=== PATIENT | male | born 1970 | race Caucasian/White ===

== ENCOUNTER 2016-06-18 14:23 | Emergency (ER) | payer OTHER ==
[2016-06-18 14:23] VITALS: BMI 39.6
[2016-06-18] MEDS ORDERED: SODIUM CHLORIDE 0.9% 3 ML FLUSH FLUSH PRN (15:11)
[2016-06-18] MEDS ORDERED: ASPIRIN 325 MG TAB PO ONE (15:11)
--- NOTE | 2016-06-18 15:15 | EDPRACDOC ---
- General Information Information Source: Patient Mode of Arrival: Car - History of Present Illness Onset: 1 DAY HPI: PT PRESENTS TO ED WITH DELUSIONAL THOUGHTS RAMBLING CONVERSATION CHEST PRESSURE TACHYPNEA RAPID HEART RATE. 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 PT ALSO STATES HE HAS BEEN SEEING PEOPLE TODAY. HE ALSO STATES THAT HE WANTS TO GET THIS OUT OF THE WAY BUT "MY IS NOT WORTH A DAMN SHE DOESNT CLEAN THE HOUSE OR DO THE LAUNDRY WHILE IM AT WORK AND SHE JUST SITS AT HOME ALL DAY LONG AND DOES NOTHING". Chest Pain Location: Reports: Substernal Pain Radiation: Reports: None Symptoms Occur: Reports: Suddenly Cardiac Risk Factors: Reports: Hyperlipidemia, Hypertension, Diabetes Cardiac History of: Reports: None PE Risk Factors: Reports: None Medications within 24 Hours: Reports: Aspirin Prehospital Care: Reports: ASA (REGULAR MEDS TODAY) Pain Came On: Reports: Gradually (THROUGHTOUT THE DAY) Pain Status: Present Now Pain Description: Reports: Pressure, Aching, Tightness Pain Severity: Moderate Pain Worsens With: Reports: Nothing Pain Improves With: Reports: Nothing Associated Signs and Symptoms: Reports: SOB, Palpitations, Nausea, Other ( HEADACHE) <Aubrey Rene - Last Filed: 06/18/16 15:50> <Pedro Torres - Last Filed: 06/18/16 19:35> - General Information Chief Complaint: Chest Pain Stated Complaint: CHEST PAIN; SHOB Time Seen by Provider: 06/18/16 15:10 Home Medications: Home Medications Hydrochlorothiazide [Hydrodiuril] 12.5 mg PO HS 02/29/16 Lisinopril [Prinivil] 20 mg PO HS 02/29/16 Omeprazole [Prilosec] 20 mg PO HS 02/29/16 Testosterone Cypionate [Depo-Testosterone] 1 ml IM .[id number] 02/29/16 Insulin Regular, Human [Humulin R U-500 Kwikpen] 65 unit SQ BID 11/19/16 Aspirin (Enteric Coated) [Ecotrin] 162 mg PO .ONCE 06/18/16 Cholecalciferol (Vitamin D3) [Vitamin D3] 2,000 unit PO QHS 06/18/16 [place]-3 Fatty Acids/Fish Oil [Fish Oil 1,000 mg Softgel] 1 cap PO QHS 06/18/16 Ondansetron HCl [Zofran] 4 mg PO Q6H PRN #15 tab 06/18/16 Oseltamivir Phosphate [Tamiflu] 75 mg PO BID #10 cap 06/18/16 [place] 160 mg PO QHS 06/18/16 Allergies/Adverse Reactions: Allergies Allergy/AdvReac Type Severity Reaction Status Date / Time Fibrate Anti-Lipidemics Allergy Unknown Verified 06/18/16 15:27 Rqovioc-Wcy-Lyc Reductase Allergy See Verified 06/18/16 14:29 Inhibitor Comments ED Past Medical History - History Reviewed Yes Nurses notes reviewed and agree except as marked Travel Outside of [place] in the Last 3 Months?: No - Patient Medical History Cardiac History: Reports: Hypertension, Heart Attack, Hypercholesterolemia GI/ History: Reports: Pancreatitis Psychological History: Reports: Depression, Anxiety Systemic History: Reports: Cancer (MELANOMA), Diabetes Surgical History: Reports: Tonsillectomy/Adnoidectomy, Other (MELANOMA REMOVAL) - Family Medical History Reports: Diabetes (grandfather), Cancer (grandmother), Cardiac Disorders (father ). Denies: Hypertension, Stroke - Social Medical History Smoking Status: Never smoker Social History: Reports: Marijuana Use ETOH: None Substance Abuse: None Lives With: Spouse Lives In: Home <Aubrey Rene - Last Filed: 06/18/16 15:50> EDM Review of Systems - Review of Systems ROS Negative Except as Marked: Yes All systems reviewed and were negative except as marked Constitutional: Chills (AND SHAKES), Fatigue. negative: Fever, Loss of Appetite , Weakness Eyes: No Symptoms Reported. negative: Redness, Blurred Vision, Double Vision, Discharge, Pain, Light Sensitive, Photophobia Ears: No Symptoms Reported. negative: Pain, Hearing Loss, Drainage, Ear Pulling Throat: No Symptoms Reported. negative: Pain, Swelling Nose: No Symptoms Reported. negative: Congestion, Bleeding, Discharge, Injection, Swelling, Deformity, Ecchymosis, Tender, Abrasion, Laceration Mouth: No Symptoms Reported. negative: Pain, Drooling Respiratory: Shortness of Breath, Other (TACHYPNEA). negative: Barky Cough, Brassy Cough, Cough, Hemoptysis, Wheezing Cardiovascular: Palpitations. negative: Chest Pain, Cyanosis, Edema, Orthopnea , PND, Syncope, Skin Mottling Gastrointestinal: No Symptoms Reported. negative: Pain, Constipation, Nausea, Vomiting, Diarrhea, Melena, Formula Intolerance Genitourinary: No Symptoms Reported. negative: Dysuria, Hematuria, Frequency, Discharge, Bleeding, Testicular Pain, Neurological: Headache, Mood Changes, Changes in Orientation, Other (DELUSIONS RAMBLING CONVERSATION). negative: Dizziness, Gait Difficulty, Numbness, Seizure , Speech Difficulty, Weakness Musculoskeletal: No Symptoms Reported. negative: Neck, Chestwall, Ribs, Back, Shoulder, Arm, Elbow, Forearm, Wrist, Hand, Pelvis, Hip, Femur, Knee, Leg, Ankle , Foot Integumentary: No Symptoms Reported. negative: Itching, Rash, Bruising, Wound Allergic/Immunologic: No Symptoms Reported. negative: Hives, Itching Hematologic: No Symptoms Reported. negative: Lymphadenopathy, Easy Bruising, Easy Bleeding Endocrine: No Symptoms Reported. negative: Weight Gain, Weight Loss Psychiatric: Anxiety (PANIC ATTACKS CURRENT), Other (DELUSIONS AND QUESTIONABLE HALLUCINATIONS). negative: Depression, Hallucinations, Insomnia, Suicidal <Aubrey Rene - Last Filed: 06/18/16 15:50> - Physical Exam Constitutional: Alert (Awake), Confused Oriented to: Time, Person, Place Last recorded Vital Signs: Last Vital Signs Temp 99.4 F 06/18/16 14:25 Pulse 127 H 06/18/16 15:05 Resp 21 06/18/16 15:05 BP 128/70 06/18/16 15:05 Pulse Ox 95 06/18/16 15:05 Oxygen Pulse Oxygen Saturation 95 O2 Device Room Air Oxygen Flow Rate Fraction of Inspired Oxygen ( FIO2) - HEENT Head: Normal ( normocephalic) Eye Exam: Normal (PERRL, EOMI, Sclera white) Oropharynx: Normal (Pharynx:Moist without exudate,Gums-no swelling) Tympanic Membrane: Normal ENT EAC: Normal TMJ: Normal Nose: No Symptoms Reported (septum midline) Neck: Normal (FROM, trachea at midline) - Respiratory/Cardiovascular Respiratory: Diminished, Tachypnea Cardiovascular: Tachycardia - GI Auscultation: Normal (NABS) Palpation: Normal (Soft,No rebound or guarding, non distended) Tenderness: Non tender Hernández's Sign: Negative - Bladder: Normal - Musculoskeletal Back: Normal (Non-Tender) Extremities: Normal (Normal tone, Pulses 2+ No cyanosis or edema, FROM) - Integumentary Skin: Normal, Warm, Dry Lymphatics: Normal (no adenopathy) - Neurologic Memory Impaired: Normal Motor Function: Normal (Normal tone, Pulses 2+ No cyanosis or edema, FROM) Cranial Nerve: Normal (CN II-X11 intact sensation, strength 5/5) Cerebellar: Normal Mood Description: Anxious Thought: Delusions, Flight of Ideas, Paranoia, Rambling Conversation <Aubrey Rene - Last Filed: 06/18/16 15:50> - Physical Exam Last recorded Vital Signs: Last Vital Signs Temp 98.5 F 06/18/16 18:39 Pulse 118 06/18/16 18:22 Resp 28 H 06/18/16 18:22 BP 118/67 06/18/16 18:22 Pulse Ox 94 06/18/16 18:22 Oxygen Pulse Oxygen Saturation 94 O2 Device Room Air Oxygen Flow Rate Fraction of Inspired Oxygen ( FIO2) <Pedro Torres - Last Filed: 06/18/16 19:35> ED Chest Pain Exam - Respiratory/Cardiovascular Respiratory: Diminished, Tachypnea Cardiovascular/Chest: Tachycardia Radial Pulse: Normal Femoral Pulse: Normal Pedal Pulse: Normal Carotid Arteries: Normal Chest Palpation: Normal <Aubrey Rene - Last Filed: 06/18/16 15:50> - Differential Diagnosis Angina, Esophageal reflux/spasm, Myocardial infarction, Pneumonia, Pulmonary embolus, Other (DRUG INDUCED, MENTAL HEALTH DISORDER, ANXIETY, MAJOR DEPRESSION WITH PSYCHOTIC FEATURES) - Action Patient received Aspirin within last 24 hours?: Yes ASA given in the ED: Yes Aspirin therapy held due to: Other-specify below* (PT HAD 162MG GAVE 325MG IN ED ) - Results 06/18/16 15:00 06/18/16 15:00 <Aubrey Rene - Last Filed: 06/18/16 15:50> - Re-evaluation Re-evaluation 1 Re-evaluation Time: 19:24 MENTATION IMPROVING. HAVE ADVISED PATIENT AND FAMILY TO RETURN IF WORSENING SYMPTOMS. WILL TREAT INFLUENZA GIVEN HIGH FALSE NEGATIVE RATE OF TESTING. - Results 06/18/16 15:00 06/18/16 15:00 WBC 9.2 xk/uL (3.8-10.8) 06/18/16 15:00 RBC 6.54 xM/uL (4.70-6.10) H 06/18/16 15:00 Hgb 17.0 g/dL (14.0-18.0) 06/18/16 15:00 Hct 50.8 % (42-52) 06/18/16 15:00 MCV 78 fL (80-94) L 06/18/16 15:00 MCH 26.1 pg (27-32) L 06/18/16 15:00 MCHC 33.5 g/dl (33-36) 06/18/16 15:00 RDW 14.8 % (11.5-14.5) H 06/18/16 15:00 Plt Count 245 xk/uL (130-400) 06/18/16 15:00 MPV 8.4 fL (7.4-10.4) 06/18/16 15:00 Neut % (Auto) 87.2 % (45-76) H 06/18/16 15:00 Lymph % (Auto) 6.3 % (17-44) L 06/18/16 15:00 [place] % (Auto) 5.1 % (3-10) 06/18/16 15:00 Eos % (Auto) 0.7 % (0-5) 06/18/16 15:00 Baso % (Auto) 0.7 % (0-2) 06/18/16 15:00 Absolute Neuts (auto) 8.00 xk/uL (1.7-8.2) 06/18/16 15:00 Absolute Lymphs (auto) 0.55 xk/uL (0.65-4.75) L 06/18/16 15:00 PT 10.7 SEC (9.2-11.2) 06/18/16 15:00 INR 1.0 06/18/16 15:00 APTT 27.4 SEC (22-35) 06/18/16 15:00 D-Dimer Quant (PE/DVT) 418 ng/mL (<500) 06/18/16 15:00 Puncture Site Right radial 01/17/17 16:34 pH 7.470 pH UNITS (7.35-7.45) H 06/18/16 16:34 pCO2 32.0 mmHg (35-45) L 06/18/16 16:34 pO2 68.0 mmHg (80-100) L 06/18/16 16:34 HCO3 23.3 MMOL/L (22-26) 06/18/16 16:34 Total CO2 24.3 MMOL/L (23-27) 06/18/16 16:34 Base Excess 0.3 (+/- 2) 06/18/16 16:34 FiO2 % 21% 06/18/16 16:34 Specimen Drawn By Kasgl 06/18/16 16:34 Sodium 138 mEq/L (137-146) 06/18/16 15:00 Potassium 4.3 mEq/L (3.5-5.1) 06/18/16 15:00 Chloride 99 mEq/L (98-107) 06/18/16 15:00 Carbon Dioxide 27 mMOL/L (22-33) 06/18/16 15:00 Anion Gap 16 mEq/L (8-16) 06/18/16 15:00 BUN 25 MG/DL (9-20) H 06/18/16 15:00 Creatinine 1.20 MG/DL (0.66-1.25) 06/18/16 15:00 Estimated GFR (MDRD) > 60 mL/min (>=60) 06/18/16 15:00 Glucose 142 MG/DL (70-99) H 06/18/16 15:00 POC Capillary Glucose 93 MG/DL (70-99) 06/18/16 18:11 Calculated Osmolality 272 MOs/Kg (270-290) 06/18/16 15:00 Lactic Acid 2.3 mEq/L (0.7-2.1) H 06/18/16 17:35 Calcium 9.2 MG/DL (8.4-10.2) 06/18/16 15:00 Total Bilirubin 1.1 MG/DL (0.2-1.3) 06/18/16 15:00 AST 39 IU/L (17-59) 06/18/16 15:00 ALT 41 IU/L (21-72) 06/18/16 15:00 Alkaline Phosphatase 85 IU/L (38-126) 06/18/16 15:00 Creatine Kinase 337 IU/L (55-170) H 06/18/16 17:35 CK-MB (CK-2) 3.4 ng/mL (0-4.5) 06/18/16 17:35 Troponin I < 0.01 ng/mL (<.04) 06/18/16 17:35 Cmc-R-Zzbmtnhaufz Pept 29 pg/mL (0-450) 06/18/16 15:00 Total Protein 7.6 G/DL (6.3-8.2) 06/18/16 15:00 Albumin 4.4 G/DL (3.5-5.0) 06/18/16 15:00 Lipase 57 U/L (23-300) 06/18/16 15:00 TSH 1.11 uIU/mL (0.5-4.67) 06/18/16 15:00 Free T4 0.91 ng/dL (0.78-2.19) 06/18/16 15:00 Free T3 4.18 pg/mL (2.77-5.27) 06/18/16 15:00 Urine Color Yellow 06/18/16 15:42 Urine Clarity Clear 06/18/16 15:42 Urine pH 5.0 (5.0-8.0) 06/18/16 15:42 Ur Specific [place] 1.020 06/18/16 15:42 Urine Protein Neg (NEG/TRACE) 06/18/16 15:42 Urine Glucose (UA) 2+ (NEGATIVE) 06/18/16 15:42 Urine Ketones Neg (NEGATIVE) 06/18/16 15:42 Urine Occult Blood Neg (NEG/TRACE) 06/18/16 15:42 Urine Nitrite Neg (NEGATIVE) 06/18/16 15:42 Urine Bilirubin Neg (NEGATIVE) 06/18/16 15:42 Urine Urobilinogen 0.2 MG/DL (0-1) 06/18/16 15:42 Ur Leukocyte Esterase Neg (NEGATIVE) 06/18/16 15:42 Urine RBC 0-2 (0-2) 06/18/16 15:42 Urine WBC 0-2 (0-2) 06/18/16 15:42 Ur Epithelial Cells Occ 06/18/16 15:42 Hyaline Casts 0-2 (0-2) 06/18/16 15:42 Urine Mucus Sm amt (NEG/OCC) 06/18/16 15:42 Urine Opiates Screen Neg (NEGATIVE) 06/18/16 15:42 Ur Oxycodone Screen Neg (NEGATIVE) 06/18/16 15:42 Urine Methadone Screen Neg (NEGATIVE) 06/18/16 15:42 Ur Barbiturates Screen Neg (NEGATIVE) 06/18/16 15:42 Ur Tricyclics Screen Neg (NEGATIVE) 06/18/16 15:42 Ur Phencyclidine Scrn Neg (NEGATIVE) 06/18/16 15:42 Ur Amphetamines Screen Neg (NEGATIVE) 06/18/16 15:42 U Methamphetamines Scrn Neg (NEGATIVE) 06/18/16 15:42 Urine MDMA Screen Neg (NEGATIVE) 06/18/16 15:42 U Benzodiazepines Scrn *positive* (NEGATIVE) H 06/18/16 15:42 Urine Cocaine Screen Neg (NEGATIVE) 06/18/16 15:42 Ur THC Screen Neg (NEGATIVE) 06/18/16 15:42 Plasma/Serum Ethyl Alc % (<0.01) 06/18/16 15:00 Microbiology 06/18/16 17:08 Influenza Type A Antigen Screen - Final Nasal Washing/Aspirate Or Swab NEGATIVE Please note: A NEGATIVE result does not exclude an influenza virus infection. It is a presumptive result and, if required, confirmation should be done using either a virus culture or an FDA-cleared influenza A&B molecular assay. ("NORMAL" value = "NEGATIVE".) Influenza Type B Antigen Screen - Final NEGATIVE Please note: A NEGATIVE result does not exclude an influenza virus infection. It is a presumptive result and, if required, confirmation should be done using either a virus culture or an FDA-cleared influenza A&B molecular assay. ("NORMAL" value = "NEGATIVE".) Lab Results 06/18/16 06/18/16 06/18/16 18:11 17:35 17:35 WBC RBC Hgb Hct MCV MCH MCHC RDW Plt Count MPV Neut % (Auto) Lymph % (Auto) [place] % (Auto) Eos % (Auto) Baso % (Auto) Absolute Neuts (auto) Absolute Lymphs (auto) PT INR APTT D-Dimer Quant (PE/DVT) Puncture Site pH pCO2 pO2 HCO3 Total CO2 Base Excess FiO2 % Specimen Drawn By Sodium Potassium Chloride Carbon Dioxide Anion Gap BUN Creatinine Estimated GFR (MDRD) Glucose POC Capillary Glucose 93 Calculated Osmolality Lactic Acid 2.3 H Calcium Total Bilirubin AST ALT Alkaline Phosphatase Creatine Kinase 337 H CK-MB (CK-2) 3.4 Troponin I < 0.01 Gsq-X-Zrnoszblxmt Pept Total Protein Albumin Lipase TSH Free T4 Free T3 Urine Color Urine Clarity Urine pH Ur Specific [place] Urine Protein Urine Glucose (UA) Urine Ketones Urine Occult Blood Urine Nitrite Urine Bilirubin Urine Urobilinogen Ur Leukocyte Esterase Urine RBC Urine WBC Ur Epithelial Cells Hyaline Casts Urine Mucus Urine Opiates Screen Ur Oxycodone Screen Urine Methadone Screen Ur Barbiturates Screen Ur Tricyclics Screen Ur Phencyclidine Scrn Ur Amphetamines Screen U Methamphetamines Scrn Urine MDMA Screen U Benzodiazepines Scrn Urine Cocaine Screen Ur THC Screen Plasma/Serum Ethyl Alc 06/18/16 06/18/16 06/18/16 16:34 15:42 15:42 WBC RBC Hgb Hct MCV MCH MCHC RDW Plt Count MPV Neut % (Auto) Lymph % (Auto) [place] % (Auto) Eos % (Auto) Baso % (Auto) Absolute Neuts (auto) Absolute Lymphs (auto) PT INR APTT D-Dimer Quant (PE/DVT) Puncture Site Right radial pH 7.470 H pCO2 32.0 L pO2 68.0 L HCO3 23.3 Total CO2 24.3 Base Excess 0.3 FiO2 % 21% Specimen Drawn By Kasgl Sodium Potassium Chloride Carbon Dioxide Anion Gap BUN Creatinine Estimated GFR (MDRD) Glucose POC Capillary Glucose Calculated Osmolality Lactic Acid Calcium Total Bilirubin AST ALT Alkaline Phosphatase Creatine Kinase CK-MB (CK-2) Troponin I Zni-S-Xejpqkrjlja Pept Total Protein Albumin Lipase TSH Free T4 Free T3 Urine Color Yellow Urine Clarity Clear Urine pH 5.0 Ur Specific [place] 1.020 Urine Protein Neg Urine Glucose (UA) 2+ Urine Ketones Neg Urine Occult Blood Neg Urine Nitrite Neg Urine Bilirubin Neg Urine Urobilinogen 0.2 Ur Leukocyte Esterase Neg Urine RBC 0-2 Urine WBC 0-2 Ur Epithelial Cells Occ Hyaline Casts 0-2 Urine Mucus Sm amt Urine Opiates Screen Neg Ur Oxycodone Screen Neg Urine Methadone Screen Neg Ur Barbiturates Screen Neg Ur Tricyclics Screen Neg Ur Phencyclidine Scrn Neg Ur Amphetamines Screen Neg U Methamphetamines Scrn Neg Urine MDMA Screen Neg U Benzodiazepines Scrn *positive* H Urine Cocaine Screen Neg Ur THC Screen Neg Plasma/Serum Ethyl Alc 06/18/16 06/18/16 06/18/16 15:00 15:00 15:00 WBC RBC Hgb Hct MCV MCH MCHC RDW Plt Count MPV Neut % (Auto) Lymph % (Auto) [place] % (Auto) Eos % (Auto) Baso % (Auto) Absolute Neuts (auto) Absolute Lymphs (auto) PT INR APTT D-Dimer Quant (PE/DVT) Puncture Site pH pCO2 pO2 HCO3 Total CO2 Base Excess FiO2 % Specimen Drawn By Sodium Potassium Chloride Carbon Dioxide Anion Gap BUN Creatinine Estimated GFR (MDRD) Glucose POC Capillary Glucose Calculated Osmolality Lactic Acid Calcium Total Bilirubin AST ALT Alkaline Phosphatase Creatine Kinase CK-MB (CK-2) Troponin I Ggd-A-Uapyiecjnho Pept Total Protein Albumin Lipase 57 TSH 1.11 Free T4 0.91 Free T3 4.18 Urine Color Urine Clarity Urine pH Ur Specific [place] Urine Protein Urine Glucose (UA) Urine Ketones Urine Occult Blood Urine Nitrite Urine Bilirubin Urine Urobilinogen Ur Leukocyte Esterase Urine RBC Urine WBC Ur Epithelial Cells Hyaline Casts Urine Mucus Urine Opiates Screen Ur Oxycodone Screen Urine Methadone Screen Ur Barbiturates Screen Ur Tricyclics Screen Ur Phencyclidine Scrn Ur Amphetamines Screen U Methamphetamines Scrn Urine MDMA Screen U Benzodiazepines Scrn Urine Cocaine Screen Ur THC Screen Plasma/Serum Ethyl Alc 06/18/16 06/18/16 06/18/16 15:00 15:00 15:00 WBC 9.2 RBC 6.54 H Hgb 17.0 Hct 50.8 MCV 78 L MCH 26.1 L MCHC 33.5 RDW 14.8 H Plt Count 245 MPV 8.4 Neut % (Auto) 87.2 H Lymph % (Auto) 6.3 L [place] % (Auto) 5.1 Eos % (Auto) 0.7 Baso % (Auto) 0.7 Absolute Neuts (auto) 8.00 Absolute Lymphs (auto) 0.55 L PT 10.7 INR 1.0 APTT 27.4 D-Dimer Quant (PE/DVT) 418 Puncture Site pH pCO2 pO2 HCO3 Total CO2 Base Excess FiO2 % Specimen Drawn By Sodium Potassium Chloride Carbon Dioxide Anion Gap BUN Creatinine Estimated GFR (MDRD) Glucose POC Capillary Glucose Calculated Osmolality Lactic Acid Calcium Total Bilirubin AST ALT Alkaline Phosphatase Creatine Kinase CK-MB (CK-2) Troponin I Emf-[id number]-Aqjjcnyiuei Pept Total Protein Albumin Lipase TSH Free T4 Free T3 Urine Color Urine Clarity Urine pH Ur Specific [place] Urine Protein Urine Glucose (UA) Urine Ketones Urine Occult Blood Urine Nitrite Urine Bilirubin Urine Urobilinogen Ur Leukocyte Esterase Urine RBC Urine WBC Ur Epithelial Cells Hyaline Casts Urine Mucus Urine Opiates Screen Ur Oxycodone Screen Urine Methadone Screen Ur Barbiturates Screen Ur Tricyclics Screen Ur Phencyclidine Scrn Ur Amphetamines Screen U Methamphetamines Scrn Urine MDMA Screen U Benzodiazepines Scrn Urine Cocaine Screen Ur THC Screen Plasma/Serum Ethyl Alc 06/18/16 15:00 WBC RBC Hgb Hct MCV MCH MCHC RDW Plt Count MPV Neut % (Auto) Lymph % (Auto) [place] % (Auto) Eos % (Auto) Baso % (Auto) Absolute Neuts (auto) Absolute Lymphs (auto) PT INR APTT D-Dimer Quant (PE/DVT) Puncture Site pH pCO2 pO2 HCO3 Total CO2 Base Excess FiO2 % Specimen Drawn By Sodium 138 Potassium 4.3 Chloride 99 Carbon Dioxide 27 Anion Gap 16 BUN 25 H Creatinine 1.20 Estimated GFR (MDRD) > 60 Glucose 142 H POC Capillary Glucose Calculated Osmolality 272 Lactic Acid Calcium 9.2 Total Bilirubin 1.1 AST 39 ALT 41 Alkaline Phosphatase 85 Creatine Kinase 407 H CK-MB (CK-2) 5.7 H Troponin I < 0.01 Nqp-N-Kzkhkppctsp Pept 29 Total Protein 7.6 Albumin 4.4 Lipase TSH Free T4 Free T3 Urine Color Urine Clarity Urine pH Ur Specific [place] Urine Protein Urine Glucose (UA) Urine Ketones Urine Occult Blood Urine Nitrite Urine Bilirubin Urine Urobilinogen Ur Leukocyte Esterase Urine RBC Urine WBC Ur Epithelial Cells Hyaline Casts Urine Mucus Urine Opiates Screen Ur Oxycodone Screen Urine Methadone Screen Ur Barbiturates Screen Ur Tricyclics Screen Ur Phencyclidine Scrn Ur Amphetamines Screen U Methamphetamines Scrn Urine MDMA Screen U Benzodiazepines Scrn Urine Cocaine Screen Ur THC Screen Plasma/Serum Ethyl Alc Laboratory Results - last 24 hr 06/18/16 06/18/16 06/18/16 15:00 15:00 15:00 WBC 9.2 RBC 6.54 H Hgb 17.0 Hct 50.8 MCV 78 L MCH 26.1 L MCHC 33.5 RDW 14.8 H Plt Count 245 MPV 8.4 Neut % (Auto) 87.2 H Lymph % (Auto) 6.3 L [place] % (Auto) 5.1 Eos % (Auto) 0.7 Baso % (Auto) 0.7 Absolute Neuts (auto) 8.00 Absolute Lymphs (auto) 0.55 L PT 10.7 INR 1.0 APTT 27.4 D-Dimer Quant (PE/DVT) Puncture Site pH pCO2 pO2 HCO3 Total CO2 Base Excess FiO2 % Specimen Drawn By Sodium 138 Potassium 4.3 Chloride 99 Carbon Dioxide 27 Anion Gap 16 BUN 25 H Creatinine 1.20 Estimated GFR (MDRD) > 60 Glucose 142 H POC Capillary Glucose Calculated Osmolality 272 Lactic Acid Calcium 9.2 Total Bilirubin 1.1 AST 39 ALT 41 Alkaline Phosphatase 85 Creatine Kinase 407 H CK-MB (CK-2) 5.7 H Troponin I < 0.01 Rni-T-Ckqaztixhax Pept 29 Total Protein 7.6 Albumin 4.4 Lipase TSH Free T4 Free T3 Urine Color Urine Clarity Urine pH Ur Specific [place] Urine Protein Urine Glucose (UA) Urine Ketones Urine Occult Blood Urine Nitrite Urine Bilirubin Urine Urobilinogen Ur Leukocyte Esterase Urine RBC Urine WBC Ur Epithelial Cells Hyaline Casts Urine Mucus Urine Opiates Screen Ur Oxycodone Screen Urine Methadone Screen Ur Barbiturates Screen Ur Tricyclics Screen Ur Phencyclidine Scrn Ur Amphetamines Screen U Methamphetamines Scrn Urine MDMA Screen U Benzodiazepines Scrn Urine Cocaine Screen Ur THC Screen Plasma/Serum Ethyl Alc 06/18/16 06/18/16 06/18/16 15:00 15:00 15:00 WBC RBC Hgb Hct MCV MCH MCHC RDW Plt Count MPV Neut % (Auto) Lymph % (Auto) [place] % (Auto) Eos % (Auto) Baso % (Auto) Absolute Neuts (auto) Absolute Lymphs (auto) PT INR APTT D-Dimer Quant (PE/DVT) 418 Puncture Site pH pCO2 pO2 HCO3 Total CO2 Base Excess FiO2 % Specimen Drawn By Sodium Potassium Chloride Carbon Dioxide Anion Gap BUN Creatinine Estimated GFR (MDRD) Glucose POC Capillary Glucose Calculated Osmolality Lactic Acid Calcium Total Bilirubin AST ALT Alkaline Phosphatase Creatine Kinase CK-MB (CK-2) Troponin I Wof-W-Kzsnojwocdx Pept Total Protein Albumin Lipase 57 TSH 1.11 Free T4 0.91 Free T3 4.18 Urine Color Urine Clarity Urine pH Ur Specific [place] Urine Protein Urine Glucose (UA) Urine Ketones Urine Occult Blood Urine Nitrite Urine Bilirubin Urine Urobilinogen Ur Leukocyte Esterase Urine RBC Urine WBC Ur Epithelial Cells Hyaline Casts Urine Mucus Urine Opiates Screen Ur Oxycodone Screen Urine Methadone Screen Ur Barbiturates Screen Ur Tricyclics Screen Ur Phencyclidine Scrn Ur Amphetamines Screen U Methamphetamines Scrn Urine MDMA Screen U Benzodiazepines Scrn Urine Cocaine Screen Ur THC Screen Plasma/Serum Ethyl Alc 06/18/16 06/18/16 06/18/16 15:00 15:42 15:42 WBC RBC Hgb Hct MCV MCH MCHC RDW Plt Count MPV Neut % (Auto) Lymph % (Auto) [place] % (Auto) Eos % (Auto) Baso % (Auto) Absolute Neuts (auto) Absolute Lymphs (auto) PT INR APTT D-Dimer Quant (PE/DVT) Puncture Site pH pCO2 pO2 HCO3 Total CO2 Base Excess FiO2 % Specimen Drawn By Sodium Potassium Chloride Carbon Dioxide Anion Gap BUN Creatinine Estimated GFR (MDRD) Glucose POC Capillary Glucose Calculated Osmolality Lactic Acid Calcium Total Bilirubin AST ALT Alkaline Phosphatase Creatine Kinase CK-MB (CK-2) Troponin I Yxg-G-Tluyeibctpy Pept Total Protein Albumin Lipase TSH Free T4 Free T3 Urine Color Yellow Urine Clarity Clear Urine pH 5.0 Ur Specific [place] 1.020 Urine Protein Neg Urine Glucose (UA) 2+ Urine Ketones Neg Urine Occult Blood Neg Urine Nitrite Neg Urine Bilirubin Neg Urine Urobilinogen 0.2 Ur Leukocyte Esterase Neg Urine RBC 0-2 Urine WBC 0-2 Ur Epithelial Cells Occ Hyaline Casts 0-2 Urine Mucus Sm amt Urine Opiates Screen Neg Ur Oxycodone Screen Neg Urine Methadone Screen Neg Ur Barbiturates Screen Neg Ur Tricyclics Screen Neg Ur Phencyclidine Scrn Neg Ur Amphetamines Screen Neg U Methamphetamines Scrn Neg Urine MDMA Screen Neg U Benzodiazepines Scrn *positive* H Urine Cocaine Screen Neg Ur THC Screen Neg Plasma/Serum Ethyl Alc 06/18/16 06/18/16 06/18/16 16:34 17:35 17:35 WBC RBC Hgb Hct MCV MCH MCHC RDW Plt Count MPV Neut % (Auto) Lymph % (Auto) [place] % (Auto) Eos % (Auto) Baso % (Auto) Absolute Neuts (auto) Absolute Lymphs (auto) PT INR APTT D-Dimer Quant (PE/DVT) Puncture Site Right radial pH 7.470 H pCO2 32.0 L pO2 68.0 L HCO3 23.3 Total CO2 24.3 Base Excess 0.3 FiO2 % 21% Specimen Drawn By Kasgl Sodium Potassium Chloride Carbon Dioxide Anion Gap BUN Creatinine Estimated GFR (MDRD) Glucose POC Capillary Glucose Calculated Osmolality Lactic Acid 2.3 H Calcium Total Bilirubin AST ALT Alkaline Phosphatase Creatine Kinase 337 H CK-MB (CK-2) 3.4 Troponin I < 0.01 Enx-B-Rfuhhfutbji Pept Total Protein Albumin Lipase TSH Free T4 Free T3 Urine Color Urine Clarity Urine pH Ur Specific [place] Urine Protein Urine Glucose (UA) Urine Ketones Urine Occult Blood Urine Nitrite Urine Bilirubin Urine Urobilinogen Ur Leukocyte Esterase Urine RBC Urine WBC Ur Epithelial Cells Hyaline Casts Urine Mucus Urine Opiates Screen Ur Oxycodone Screen Urine Methadone Screen Ur Barbiturates Screen Ur Tricyclics Screen Ur Phencyclidine Scrn Ur Amphetamines Screen U Methamphetamines Scrn Urine MDMA Screen U Benzodiazepines Scrn Urine Cocaine Screen Ur THC Screen Plasma/Serum Ethyl Alc 06/18/16 18:11 WBC RBC Hgb Hct MCV MCH MCHC RDW Plt Count MPV Neut % (Auto) Lymph % (Auto) [place] % (Auto) Eos % (Auto) Baso % (Auto) Absolute Neuts (auto) Absolute Lymphs (auto) PT INR APTT D-Dimer Quant (PE/DVT) Puncture Site pH pCO2 pO2 HCO3 Total CO2 Base Excess FiO2 % Specimen Drawn By Sodium Potassium Chloride Carbon Dioxide Anion Gap BUN Creatinine Estimated GFR (MDRD) Glucose POC Capillary Glucose 93 Calculated Osmolality Lactic Acid Calcium Total Bilirubin AST ALT Alkaline Phosphatase Creatine Kinase CK-MB (CK-2) Troponin I [id number] Pept Total Protein Albumin Lipase TSH Free T4 Free T3 Urine Color Urine Clarity Urine pH Ur Specific [place] Urine Protein Urine Glucose (UA) Urine Ketones Urine Occult Blood Urine Nitrite Urine Bilirubin Urine Urobilinogen Ur Leukocyte Esterase Urine RBC Urine WBC Ur Epithelial Cells Hyaline Casts Urine Mucus Urine Opiates Screen Ur Oxycodone Screen Urine Methadone Screen Ur Barbiturates Screen Ur Tricyclics Screen Ur Phencyclidine Scrn Ur Amphetamines Screen U Methamphetamines Scrn Urine MDMA Screen U Benzodiazepines Scrn Urine Cocaine Screen Ur THC Screen Plasma/Serum Ethyl Alc Laboratory Results 06/18/16 15:00 06/18/16 15:00 <Pedro Torres - Last Filed: 06/18/16 19:35> <Aubrey Rene - Last Filed: 06/18/16 15:50> Decision Time to Discharge: 19:24 - Departure Yes I personally saw and evaluated the patient. Disposition: Home Education/Counseling Given To: Patient, Family Member Education/Counseling Given Regarding: Diagnosis, Treatment, Prognosis, Follow Up <Pedro Torres - Last Filed: 06/18/16 19:35> - Departure Condition: Improved Final Diagnosis: Acute febrile illness Altered mental status Qualifiers: Altered mental status type: transient alteration of awareness Qualified Code(s) : R40.4 - Transient alteration of awareness Instructions: Fever in Adults (ED), Acute Delirium (ED) Referrals: German Zurita MD [Primary Care Provider] - Call for Appointment Prescriptions: Ondansetron HCl [Zofran] 4 mg PO Q6H PRN #15 tab PRN Reason: Nausea/Vomiting Oseltamivir Phosphate [Tamiflu] 75 mg PO BID #10 cap
[2016-06-18 15:20] LABS: AUTOMATED BASOPHIL 0.7 % (0-2); AUTOMATED EOSINOPHIL 0.7 % (0-5); AUTOMATED LYMPH 6.3 % (17-44); AUTOMATED MONOCYTE 5.1 % (3-10); AUTOMATED NEUTROPHIL 87.2 % (45-76); MPV 8.4 fL (7.4-10.4)
--- NOTE | 2016-06-18 15:26 | DIRPT ---
CLINICAL DATA: Chest pain EXAM: PORTABLE CHEST 1 VIEW COMPARISON: 04/20/2016 FINDINGS: Cardiomediastinal silhouette is stable. No acute infiltrate or pleural effusion. No pulmonary edema. Bony thorax is unremarkable. IMPRESSION: No active disease. Electronically Signed By: Martin Thompson M.D. On: 06/18/2016 15:24
[2016-06-18 15:29] LABS: BLOOD UREA NITROGEN 25 MG/DL (9-20); CALCIUM 9.2 MG/DL (8.4-10.2); CALCULATED OSMOLALITY 272 MOs/Kg (270-290); CHLORIDE 99 mEq/L (98-107); CPK TOTAL WITH POSSIBLE MB 407 IU/L (55-170); GLUCOSE 142 MG/DL (70-99); PARTIAL THROMB. TIME 27.4 SEC (22-35); SODIUM LEVEL 138 mEq/L (137-146); TOTAL PROTEIN 7.6 G/DL (6.3-8.2)
[2016-06-18] MEDS ORDERED: LORAZEPAM 2 MG/ML VIAL IV ONE (15:35)
[2016-06-18 15:44] LABS: CPKMB 5.7 ng/mL (0-4.5)
[2016-06-18 15:50] LABS: ALL NEG? NO
[2016-06-18 15:56] LABS: MDMA* NEG (NEGATIVE); METHAMPHETAMINES NEG (NEGATIVE); OXYCODONE NEG (NEGATIVE)
[2016-06-18 16:38] LABS: ALLEN'S TEST PASS; BEb 0.3 (+/- 2); TCO2 24.3 MMOL/L (23-27)
[2016-06-18 16:39] LABS: ABG Draw Site Right Radial
[2016-06-18 17:04] LABS: ETOH-MGDL < 10 mg/dL
[2016-06-18] MEDS ORDERED: IBUPROFEN 800 MG TAB PO ONE (17:04)
[2016-06-18] MEDS ORDERED: ACETAMINOPHEN 325 MG/TAB TABLET PO ONE (17:07)
--- NOTE | 2016-06-18 17:10 | DIRPT ---
CLINICAL DATA: Disoriented. Ramp wing conversation. Symptoms of acute in onset. History of melanoma. EXAM: CT HEAD WITHOUT CONTRAST TECHNIQUE: Contiguous axial images were obtained from the base of the skull through the vertex without intravenous contrast. COMPARISON: 02/29/2016 FINDINGS: Study is degraded by motion. Ventricles are normal in size and configuration. There are no parenchymal masses or mass effect, no evidence of an infarct, no extra-axial masses or abnormal fluid collections and no evidence of intracranial hemorrhage. Visualized sinuses and mastoid air cells are clear. IMPRESSION: 1. No acute intracranial abnormality. Essentially normal study allowing for motion artifact. Electronically Signed By: Per Choi M.D. On: 06/18/2016 17:07
[2016-06-18] MEDS ORDERED: NS 1,000 ML IV ONE (17:13)
[2016-06-18] MEDS: NS 1,000 ML IV SCH (17:13)
[2016-06-18 17:22] LABS: FREE T3 4.18 pg/mL (2.77-5.27); FREE T4 0.91 ng/dL (0.78-2.19)
[2016-06-18 17:36] LABS: hTSH 1.11 uIU/mL (0.5-4.67)
[2016-06-18 17:54] LABS: LEUKOCYTES/URINE NEG (NEGATIVE); NITRITE/URINE NEG (NEGATIVE); URINE OCCULT BLOOD NEG (NEG/TRACE)
[2016-06-18 17:58] LABS: CPK TOTAL WITH POSSIBLE MB 337 IU/L (55-170)
[2016-06-18] MEDS ORDERED: SODIUM CHLORIDE 0.9% 3 ML FLUSH FLUSH SCH (18:00)
[2016-06-18 18:01] LABS: RBC/URINE 0-2 (0-2); WBC/URINE 0-2 (0-2)
--- NOTE | 2016-06-18 18:03 | DIRPT ---
CLINICAL DATA: Fever, hypoxia. EXAM: CT CHEST WITHOUT CONTRAST TECHNIQUE: Multidetector CT imaging of the chest was performed following the standard protocol without IV contrast. COMPARISON: None. FINDINGS: Lungs are clear. No focal airspace opacities or suspicious nodules. No effusions. Heart is normal size. Aorta is normal caliber. No mediastinal, hilar, or axillary adenopathy. Chest wall soft tissues are unremarkable. Imaging into the upper abdomen shows a fat containing mass lesion in the region of the right adrenal gland most compatible with myelolipoma. This measures approximately 6.7 cm. Suspect mild diffuse fatty infiltration of the liver. No acute bony abnormality. IMPRESSION: No acute cardiopulmonary disease. 6.7 cm fatty lesion in the region of the right adrenal gland compatible with myelolipoma. Electronically Signed By: Jose Ho M.D. On: 06/18/2016 18:00
[2016-06-18 18:13] LABS: CPKMB 3.4 ng/mL (0-4.5)
[2016-06-18 18:39] VITALS: BP 118/67; PULSE 118; TEMP 98.5
[2016-06-18] MEDS ORDERED: OSELTAMIVIR PHOSPHATE 75 MG CAP PO ONE (18:45)
== END 2016-06-18 19:48 | disposition home or self-care (01) ==
LOC: ED 14:23
DX: R50.9 Fever, unspecified (principal); R40.4 Transient alteration of awareness; R07.9 Chest pain, unspecified
CPT/HCPCS: 36415; 36600; 70450; 71010; 71250; 80053; 80307; 81001; 82550; 82553; 82803; 82962; 83605; 83690; 83880; 84439; 84443; 84481; 84484; 85025; 85379; 85610; 85730; 87040; 87804; 93005; 96361; 96374; 99285; J2060; J3490